=== PATIENT | female | born 1950 | race Caucasian/White ===

== ENCOUNTER 2024-07-09 18:33 | Emergency (ER) | payer MEDICARE, BC ==
--- NOTE | 2024-07-09 18:44 | ED Physician Documentation ---
PD HPI DYSPNEA - Stated complaint Stated Complaint: WHEEZING - History obtained from History obtained from: Patient - Additional information Additional information: Relatively healthy 73-year-old woman has been sick for about 3 days with pro ductive cough, shortness of breath and wheezing. She has no history of cardiopulmonary disease. Her has been sick has been diagnosed with pneumonia. She did just get back from [place]. She has taken a few COVID tests with negative results she took a COVID test with negative results at home. No pedal edema or calf pain. No fevers. PD PAST MEDICAL HISTORY - Present Medications Home Medications: Ambulatory Orders Medication Instructions Recorded Confirmed Albuterol Sulf [Ventolin Hfa 1 - 2 puffs INH Q4HR PRN #1 each 07/09/24 Inhaler] guaiFENesin/CODEINE [Robitussin AC] 5 - 10 ml PO Q6H PRN #120 ml 07/09/24 predniSONE [Deltasone] 20 mg PO [id number] #21 tab 07/09/24 - Allergies Allergies/Adverse Reactions: Allergies Allergy/AdvReac Type Severity Reaction Status Date / Time No Known Drug Allergies Allergy Verified 07/09/24 18:49 PD ED PE NORMAL - Vitals Vital signs reviewed: Yes - General General: Alert and oriented X 3, No acute distress - Cardiac Cardiac: RRR, No murmur - Respiratory Respiratory: Other (Wheezes and rhonchi especially right upper lobe, nonlabored) - Extremities Extremities: No edema - Neuro Neuro: Alert and oriented X 3 Results - Vitals Vitals: Vital Signs - 24 hr 07/09/24 07/09/24 07/09/24 18:43 18:55 20:02 Temperature 37.3 C 36.1 C L Heart Rate 105 H 98 92 Respiratory 14 16 22 Rate Blood Pressure 151/105 H 138/75 H O2 Saturation 97 96 Oxygen O2 Source Room air - Labs Labs: Laboratory Tests 07/09/24 07/09/24 19:18 19:18 WBC 5.2 RBC 4.94 Hgb 14.4 Hct 45.8 MCV 92.7 MCH 29.1 MCHC 31.4 L RDW 13.7 Plt Count 237 MPV 10.2 Neut # (Auto) 3.0 Lymph # (Auto) 1.4 L Bucks # (Auto) 0.8 Eos # (Auto) 0.1 Baso # (Auto) 0.0 Absolute Nucleated RBC 0.00 Nucleated RBC % 0.0 Sodium 137 Potassium 4.5 Chloride 101 Carbon Dioxide 28 Anion Gap 8.0 BUN 17 Creatinine 0.7 Estimated GFR (MDRD) 82 L Glucose 96 Calcium 9.5 Total Bilirubin 0.4 AST 20 ALT 26 Alkaline Phosphatase 104 Total Protein 7.0 Albumin 4.1 Globulin 2.9 Albumin/Globulin Ratio 1.4 - Rads (name of study) 2 view chest x-ray was unremarkable Relevant Findings:: Final report received, EMP independent interpretation of test PD Medical Decision Making - ED course ED course: 73-year-old with 3 days of cough and wheezing. She is a little wheezy here. Afebrile with unremarkable vital signs save hypertension. Workup demonstrates a low normal white count with lymphopenia suggestive of a viral process. CMP was normal. Chest x-ray to my eye was clear. She was feeling somewhat better afte r albuterol 2 which we will add prednisone and codeine for the cough. Departure - Departure Disposition: Home, Self Care Clinical Impression: Viral bronchitis Condition: Good Record reviewed to determine appropriate education?: Yes Instructions: ED Viral Syndrome Prescriptions: Albuterol Sulf [Ventolin Hfa Inhaler] 1 - 2 puffs INH Q4HR PRN #1 each PRN Reason: Shortness Of Air/Wheezing predniSONE [Deltasone] 20 mg PO [id number] #21 tab guaiFENesin/CODEINE [Robitussin AC] 5 - 10 ml PO Q6H PRN #120 ml PRN Reason: Cough Comments: I sent your prescription electronically to the [facility] in [place]. X-ray looked clear and the white count was low normal suggestive of a viral process. As such it is unlikely that antibiotics would be helpful but between the steroids and the albuterol and the cough medicine I feel he will probably be better in a few days. Return for new or worsening symptoms. Follow-up with your doctor in a week if still ill. Your blood pressure was elevated today on check into the emergency department. This does not mean that you have hypertension, it is a common phenomenon to come to the emergency department and have elevated blood pressure. I recommend that you see your primary care physician within the week to have it rechecked when you are feeling better.
[2024-07-09] MEDS: ALBUTEROL NEB 2.5 MG/3 ML INH STA (18:55)
[2024-07-09 19:33] LABS: BASOPHILS % (AUTO) 0.6 %; EOSINOPHILS # (AUTO) 0.1 10^3/uL (0.0-0.7); EOSINOPHILS % (AUTO) 1.5 %; HCT - HEMATOCRIT 45.8 % (37.0-47.0); HGB - HEMOGLOBIN 14.4 g/dL (12.0-16.0); LYMPHOCYTES # (AUTO) 1.4 10^3/uL (1.5-3.5); LYMPHOCYTES % (AUTO) 26.1 %; MEAN CORPUSCULAR HEMOGLOBIN 29.1 pg (27.0-31.0); MEAN CORPUSCULAR HGB CONC 31.4 g/dL (32.0-36.0); MEAN CORPUSCULAR VOLUME 92.7 fL (81.0-99.0); MEAN PLATELET VOLUME 10.2 fL (7.9-10.8); MONOCYTES # (AUTO) 0.8 10^3/uL (0.0-1.0); NEUTROPHILS % (AUTO) 56.6 %; PLT - PLATELET COUNT 237 10^3/uL (130-450); RED BLOOD COUNT 4.94 10^6/uL (4.20-5.40); RED CELL DISTRIBUTION WIDTH 13.7 % (12.0-15.0); WHITE BLOOD COUNT 5.2 x10^3/uL (4.8-10.8)
[2024-07-09 19:48] LABS: ALBUMIN 4.1 g/dL (3.2-5.5); ALBUMIN/GLOBULIN RATIO 1.4 (1.0-2.2); BILIRUBIN,TOTAL 0.4 mg/dL (0.2-1.0); CALCIUM 9.5 mg/dL (8.5-10.3); CREATININE 0.7 mg/dL (0.6-1.3); POTASSIUM 4.5 mmol/L (3.5-4.5)
--- NOTE | 2024-07-09 20:01 | XRAY Report ---
PROCEDURE: Chest 2V INDICATIONS: cough TECHNIQUE: 2 views of the chest were acquired. COMPARISON: None. FINDINGS: Surgical changes and devices: None. Lungs and pleura: No pleural effusions or pneumothorax. Lungs are clear. Mediastinum: Mediastinal contours appear normal. Heart size is normal. Bones and chest wall: No suspicious bony lesions. Overlying soft tissues appear unremarkable. IMPRESSION: No acute cardiopulmonary process. Reviewed by: Oskar Schmidt MD on 07/09/2024 7:59 PM PDT Approved by: Oskar Schmidt MD on 07/09/2024 7:59 PM PDT Station ID: [id number]
[2024-07-09] MEDS: predniSONE 20 MG TABLET PO STA (20:07)
[2024-07-09] MEDS: guaiFENesin/CODEINE 5 ML UDC PO STA (20:07)
[2024-07-09 20:16] VITALS: BP 138/75; O2SAT 96
== END 2024-07-09 20:13 | disposition home or self-care (01) ==
LOC: ED 18:33
DX: J20.8 Acute bronchitis due to other specified organisms (principal); R03.0 Elevated blood-pressure reading, without diagnosis of hypertension
CPT/HCPCS: 36415; 71046; 80053; 85025; 94640; 94664; 99283; 99284; A9270; J7512